=== PATIENT | male | born 1995 | race African-American/Black ===

== ENCOUNTER 2018-01-23 11:26 | Emergency (ER) | payer MEDICAID ==
[~2018-01-23] VITALS: Ht 180.3 cm; Wt 100.0 kg
[2018-01-23 14:44] VITALS: BP 118/60
== END 2018-01-23 14:46 | disposition home or self-care (01) ==
LOC: ER 11:26
DX: S60.222A Contusion of left hand, initial encounter (principal); W22.8XXA Striking against or struck by other objects, initial encounter; Y93.89 Activity, other specified; Y92.520 Airport as the place of occurrence of the external cause
CPT/HCPCS: 29125; 73130; 99284

== ENCOUNTER 2018-10-12 22:31 | Emergency (ER) | payer MEDICAID ==
[~2018-10-12] VITALS: Ht 180.3 cm; Wt 107.0 kg
[2018-10-13 03:01] VITALS: BP 131/66
== END 2018-10-13 05:27 | disposition left against medical advice (07) ==
LOC: ER 22:31
DX: Z53.21 Procedure and treatment not carried out due to patient leaving prior to being seen by health care provider (principal); D57.1 Sickle-cell disease without crisis
CPT/HCPCS: 93005